=== PATIENT | female | born 1990 | race Caucasian/White ===

== ENCOUNTER 2020-04-11 10:44 | Outpatient (CLI) | payer BC, SELFPAY ==
--- NOTE | 2020-04-11 11:40 | US_ITS ---
WS: [id number] ULTRASOUND EARLY TECHNIQUE: Transabdominal sonography of the pelvis was performed. Followed by transvaginal sonography to better evaluate the uterus and ovaries. CLINICAL INFORMATION: SUPERVISION NORMAL , MULTIPAROUS LMP: 01/23/2020 Beta hCG: Unknown. COMPARISON: None. FINDINGS: Cervix measures 3.9 cm UTERUS AND GESTATIONAL SAC Intrauterine gestations: Estimated gestational age: 12w0d. Estimated delivery October 24, 2020 Yolk sac: cm. [place] rump length (CRL): 5.4 cm. heart motion: 171 BPM. Subchorionic hemorrhage: None. OVARIES Right ovary: Normal. Left ovary: Simple left ovarian cyst measuring 1.9 x 1.6 x 1.5 cm FREE FLUID None. US/US OB <= 14 weeks fetus [id number] IMPRESSION: 1. Single live intrauterine with cardiac activity. 2. Estimated gestational age; 12w0d. Estimated delivery October 24, 2020 3. Incidental small simple left ovarian cyst. 4. Normal cervix.
== END 2020-04-11 10:45 | disposition home or self-care (01) ==
LOC: RAD 10:51
PROVIDERS: Family Provider Family Medicine; Visit Provider Family Medicine
DX: Z34.81 Encounter for supervision of other normal pregnancy, first trimester; Z3A.12 12 weeks gestation of pregnancy
CPT/HCPCS: 76801

== ENCOUNTER 2020-06-09 07:02 | Outpatient (CLI) | payer SELFPAY ==
--- NOTE | 2020-06-09 07:09 | US_ITS ---
WS: [id number] OBSTETRICAL ULTRASOUND COMPLETE HISTORY: SUPERVISION NORMAL COMPARISON: None available. Single intrauterine gestation in variable presentation. Cervix is Closed and normal length. Cervical length is 5.3 cm. Normal amount of amniotic fluid surrounds the fetus. Placenta: Anterior, no previa or abruption. Placenta grade 1 Heart: 144 BPM. Four chambers are identified. Outflow tracts are not visualized. Anatomy: Intracranial structures and spine are normal. kidneys, stomach and urinary bladd er are unremarkable. Abdominal wall, three-vessel cord and cord insertion site are normal. 4 extremities are present. profile: Not visualized. Gender: Male. measurements: BPD = 4.6 cm = 19w6d HC = 17.1 cm = 19w5d AC = 14.6 cm = 19w6d FL = 3.1 cm = 19w5d EFW: 315 g. Biometry is internally concordant. AGA by ultrasound: 19w6d MICHEAL by ultrasound: 10/28/2020 US/US OB >= 14 weeks fetus [id number] IMPRESSION: 1. Single intrauterine gestation of 19w6d with an MICHEAL of 10/28/2020. 2. profile and cardiac outflow tracts are not visualized. Otherwise kristine ariana is negative.
== END 2020-06-09 07:03 | disposition home or self-care (01) ==
LOC: RAD 07:03
PROVIDERS: PCP Family Medicine; Visit Provider Family Medicine
DX: Z34.92 Encounter for supervision of normal pregnancy, unspecified, second trimester; Z3A.19 19 weeks gestation of pregnancy
CPT/HCPCS: 76805

== ENCOUNTER 2020-08-01 11:42 | Outpatient (CLI) | payer OTHER, SELFPAY ==
--- NOTE | 2020-08-01 12:03 | US_ITS ---
WS: [id number] ULTRASOUND OB LIMITED TECHNIQUE: Limited ultrasound examination of the fetus. CLINICAL INFORMATION: FOLLOW UP ON CARDIAC OUTFLOW TRACTS PROFILE COMPARISON: June 09, 2020 FINDINGS: Cervix measures 4.2 cm Single interuterine gestation. presentation is vertex Placental location is posterior. Placenta grade: 0. heart rate 147 BPM. Anatomy: Normal profile and four-chamber heart view seen today. Normal right and left ventricul ar outflow tracts[place] [id number] IMPRESSION: Normal profile and four-chamber heart view seen today. Normal right and l eft ventricular outflow tracts.
== END 2020-08-01 11:43 | disposition home or self-care (01) ==
LOC: RAD 11:52
PROVIDERS: PCP Family Medicine; Visit Provider Family Medicine
DX: Z34.80 Encounter for supervision of other normal pregnancy, unspecified trimester (principal)
CPT/HCPCS: 76816

== ENCOUNTER 2020-09-23 11:27 | Outpatient (CLI) | payer OTHER, SELFPAY ==
[2020-09-23] VITALS (7 sets, daily range): BP systolic 108–116; BP diastolic 60–72; PULSE 69–93; RESP 17; TEMP 36.7; BMI 36.2
--- NOTE | 2020-09-23 11:59 | US_ITS ---
WS: [id number] BIOPHYSICAL PROFILE AND LIMITED OB. UMBILICAL ARTERY DOPPLER EVALUATION. HISTORY: HTN. BPP with NOMAN, EFW, and umbilical artery studies please COMPARISON: 08/01/2020, 06/09/2020, 04/11/2020 Presentation: Cephalic. Cervix: Closed and normal length. Placenta: Fundal, no previa or abruption. Grade: 1 HEART: FHR of 144BPM. measurements: BPD = 8.8 cm = 35w5d HC = 31.6 cm = 35w3d AC = 31.6 cm = 35w4d FL = 6.9 cm = 35w2d NOMAN: 16.6 cm EFW: 2687g; 73 %. AGA by ultrasound: 35w4d MICHEAL by ultrasound: 10/24/2020 Measurements are internally concordant. Appropriate growth since the first trimester ultrasound. No g rowth asymmetry. UMBILICAL ARTERY DOPPLER Waveform analysis: Normal systolic and diastolic velocities. Diastolic velocity remains above the bas saul. Normal upstroke of waveform. SD ratios: SD ratios range from 1.8 - 2.5 Resistivity indices: Normal near 0.6 Biophysical profile: Parameters are as follows: Breathin Movement: 2 Tone: 2 Fluid volume: 2 Largest vertical pocket 4.2 cm. US/US OB lm w fetalBPP woNST &umb IMPRESSION: 1. Biophysical profile score: 8/8. 2. Single intrauterine gestation of 35w4d and 10/24/2020. Appropriate gr owth since the first trimester ultrasound. No growth asymmetry. 3. Estimated weight 2687 grams at the 73rd percentile. 4. Normal amniotic fluid index. 5. Normal umbilical artery Doppler evaluation. Normal waveforms.
[2020-09-23 12:22] LABS: Basophils % 0.3 %; Eosinophils # 0.1 10^3/uL (0.0-0.8); Eosinophils % 1.4 %; Hematocrit 33.5 % (37.0-47.0); Hemoglobin 10.5 g/dL (11.5-15.3); Lymphocytes # 1.4 10^3/uL (0.8-4.8); Lymphocytes % 18.5 %; Mean Corpuscular HGB Conc 31.3 g/dL (30.0-36.0); Mean Corpuscular Hemoglobin 26.2 pg (28.0-34.0); Mean Corpuscular Volume 83.5 fL (81-99); Mean Platelet Volume 12.2 fL (7.4-10.4); Monocytes # 0.6 10^3/uL (0.2-0.9); Monocytes % 8.4 %; Neutrophils % 70.9 %; Nucleated Red Blood Cells % 0 %; Platelet Count 277 10^3/cmm (130-400); Red Blood Count 4.01 10^6/uL (4.1-5.3); Red Cell Distribution Width 13.2 % (12.1-15.1); White Blood Count 7.3 10^3/uL (4.0-10.0)
[2020-09-23 13:04] LABS: Alanine Aminotransferase 11 U/L (0-33); Albumin Level 3.3 g/dL (3.5-5.2); Alkaline Phosphatase 241 IU/L (35-105); Aspartate Amino Transferase 14 U/L (0-32); Blood Urea Nitrogen 4 mg/dL (6-20); Calcium 8.3 mg/dL (8.5-10.5); Carbon Dioxide 22 mmol/L (22-29); Chloride 102 mmol/L (98-107); Globulin 3.6 g/dL (1.3-4.6); Glomerular Filtration Rate 190.1 mL/min (90-130); Glucose 116 mg/dL (65-115); Osmolality Calculated 282 mOsm/kg (285-295); Sodium 137 mmol/L (136-145); Total Bilirubin 0.3 mg/dL (0.15-1.2); Total Protein 6.9 g/dL (6.6-8.7)
== END 2020-09-23 13:30 | disposition home or self-care (01) ==
LOC: OPOB 11:33 → OBGYN 11:34
PROVIDERS: PCP Family Medicine; Visit Provider Family Medicine
DX: O16.3 Unspecified maternal hypertension, third trimester (principal); Z3A.35 35 weeks gestation of pregnancy
CPT/HCPCS: 36415; 59025; 76815; 76819; 76820; 80053; 84550; 85025; 99211

== ENCOUNTER 2020-09-26 09:57 | Outpatient (CLI) | payer OTHER, SELFPAY ==
[2020-09-26 10:03] VITALS: BMI 36.3
[2020-09-26 10:06] VITALS: BP 133/71; PULSE 103
[2020-09-26 10:07] VITALS: TEMP 36.3
[2020-09-26 10:18] VITALS: BP 115/69; PULSE 97
[2020-09-26 10:27] VITALS: BP 105/59; PULSE 96
[2020-09-26 10:37] VITALS: BP 113/78; PULSE 98
[2020-09-26 10:47] VITALS: BP 115/78; PULSE 102
== END 2020-09-26 10:52 | disposition home or self-care (01) ==
LOC: OPOB 09:59 → OBGYN 10:00
PROVIDERS: PCP Family Medicine; Visit Provider Family Medicine
DX: O16.9 Unspecified maternal hypertension, unspecified trimester (principal); Z3A.00 Weeks of gestation of pregnancy not specified
CPT/HCPCS: 59025

== ENCOUNTER 2020-09-29 16:31 | Outpatient (CLI) | payer OTHER, SELFPAY ==
[2020-09-29 16:50] VITALS: BP 123/71; PULSE 86
[2020-09-29 16:53] VITALS: RESP 16
--- NOTE | 2020-09-29 17:01 | USR_ITS ---
PROCEDURE INFORMATION: Exam: US Biophysical Profile Without Non-Stress Test Exam date and time: 09/29/2020 5:01 PM Age: 30 years old Clinical indication: Condition or disease; Other: HTN; ; Additional info: Hypertension, please get jordan and efw TECHNIQUE: Imaging protocol: US biophysical profile without non-stress testing. COMPARISON: US OB >= 14 weeks fetus [id number] 06/09/2020 7:19 AM FINDINGS: BIOPHYSICAL PROFILE: Breathin/2 Gross body movements: 2/2 tone: 2/2 Qualitative amniotic fluid: 2/2 Biophysical Profile Score: 8/8 US/US OB lm w fetalBPP woNST &umb IMPRESSION: Biophysical profile score equals 8/8.
[2020-09-29 17:05] VITALS: BP 110/76; PULSE 101
[2020-09-29 17:07] VITALS: BMI 36.6
[2020-09-29 17:20] VITALS: BP 113/80; PULSE 88
[2020-09-29 17:35] VITALS: BP 113/82; PULSE 89
[2020-09-29 17:50] VITALS: BP 120/73; PULSE 90
== END 2020-09-29 18:02 | disposition home or self-care (01) ==
LOC: OPOB 16:38 → OBGYN 16:39
PROVIDERS: PCP Family Medicine; Visit Provider Family Medicine
DX: O16.9 Unspecified maternal hypertension, unspecified trimester (principal); Z3A.00 Weeks of gestation of pregnancy not specified
CPT/HCPCS: 59025; 76815; 76819; 76820

== ENCOUNTER 2020-10-03 10:35 | Outpatient (CLI) | payer OTHER, SELFPAY ==
[2020-10-03 10:42] VITALS: BP 130/81; PULSE 93
[2020-10-03 10:44] VITALS: BMI 36.8
== END 2020-10-03 11:10 | disposition home or self-care (01) ==
LOC: OPOB 10:36 → OBGYN 10:38
PROVIDERS: PCP Family Medicine; Visit Provider Family Medicine
DX: O24.419 Gestational diabetes mellitus in pregnancy, unspecified control (principal); Z3A.00 Weeks of gestation of pregnancy not specified
CPT/HCPCS: 59025

== ENCOUNTER 2020-10-06 16:25 | Outpatient (CLI) | payer OTHER, SELFPAY ==
[2020-10-06 16:25] VITALS: BMI 37.0
--- NOTE | 2020-10-06 16:34 | USR_ITS ---
PROCEDURE INFORMATION: Exam: US , Limited Exam date and time: 10/06/2020 4:34 PM Age: 30 years old Clinical indication: Lmp or gestational age (in weeks): 36 w 5 day; Antepartum complications; Other: Pre eclamp; ; Additional info: Mild pre eclampsia, jordan, efw, umbilical artery studies TECHNIQUE: Imaging protocol: Real-time ultrasound of the maternal uterus with image documentation. Exam focused on the clinical indication. COMPARISON: US OB lm w fetalBPP woNST umb 09/29/2020 5:25 PM FINDINGS: Gestation: Single intrauterine gestation. presentation: Cephalic presentation. heart rate: 153 bpm. Placenta: Posterior grade 2 placenta. Amniotic fluid index: 13.4 cm. Umbilical cord: SD ratios 2.4 proximal, 1.7 mid, and 1.9 distal portions. Weight percentile 67% BIOMETRY: Gestational age (AUA): 36 weeks 5 days Estimated due date (AUA): 10/29/2020. Estimated weight: 3000 g, 6 lb 10 oz Biparietal diameter: 9.05 cm, 36 weeks 5 days Head circumference: 32.53 cm, 36 weeks 6 days Abdominal circumference: 32.69 cm, 36 weeks 4 days Femur length: 7.17 cm, 36 weeks 5 days MATERNAL: Cervix: Not well visualized. Estimated at 4.3 cm in length. US/US OB BPP NST [id number] IMPRESSION: 1. Single living intrauterine gestation estimated at 36 weeks 5 days.
[2020-10-06 16:39] VITALS: BP 119/76; PULSE 90; TEMP 36.8
[2020-10-06 16:59] VITALS: BP 119/74; PULSE 82
[2020-10-06 17:25] VITALS: BP 127/79; PULSE 82
[2020-10-06 17:40] VITALS: BP 120/74; PULSE 76
== END 2020-10-06 18:10 | disposition home or self-care (01) ==
LOC: OPOB 16:31 → OBGYN 16:33
PROVIDERS: PCP Family Medicine; Visit Provider Family Medicine
DX: O14.03 Mild to moderate pre-eclampsia, third trimester (principal); Z3A.36 36 weeks gestation of pregnancy
CPT/HCPCS: 59025; 76819; 99211

== ENCOUNTER 2020-10-10 14:26 | Inpatient (IN) | payer OTHER, SELFPAY ==
[2020-10-10] VITALS (9 sets, daily range): BP systolic 114–130; BP diastolic 57–79; PULSE 73–96; RESP 16; TEMP 36.6; BMI 37.4
[2020-10-10 15:16] LABS: Basophils % 0.4 %; Eosinophils # 0.1 10^3/uL (0.0-0.8); Eosinophils % 1.1 %; Hematocrit 35.9 % (37.0-47.0); Hemoglobin 11.4 g/dL (11.5-15.3); Lymphocytes # 1.6 10^3/uL (0.8-4.8); Lymphocytes % 19.6 %; Mean Corpuscular HGB Conc 31.8 g/dL (30.0-36.0); Mean Corpuscular Volume 85.1 fL (81-99); Mean Platelet Volume 12.4 fL (7.4-10.4); Monocytes # 0.5 10^3/uL (0.2-0.9); Monocytes % 5.8 %; Neutrophils # 5.88 10^3/uL (1.8-7.7); Neutrophils % 72.7 %; Nucleated Red Blood Cells % 0 %; Platelet Count 250 10^3/cmm (130-400); Red Blood Count 4.22 10^6/uL (4.1-5.3); Red Cell Distribution Width 16.1 % (12.1-15.1); White Blood Count 8.1 10^3/uL (4.0-10.0)
[2020-10-10 15:28] LABS: Bilirubin Urine Neg (Negative); Blood Urine 2+ (Negative); Glucose Urine UA Norm (Normal); Ketones Urine Negative (Negative); Leukocyte Esterase Urine Negative (Negative); Nitrate Urine Negative (Negative); Protein Urine Neg (Negative); RBC Urine 0-4 /hpf (0-2); Specific Gravity, Urine 1.005 (1.005-1.030); Urine Appearance Clear (CLEAR); Urine Color Colorless (Yellow); Urobilinogen Urine Norm (Negative); pH Urine 5 (5-7)
[2020-10-10 15:29] LABS: Add Urine Culture? No; Bacteria Urine 1+ /hpf; Squamous Epithelial Cell Urine 0-4 /hpf (0-5)
[2020-10-10 15:31] LABS: Alanine Aminotransferase 6 U/L (0-33); Albumin Level 3.4 g/dL (3.5-5.2); Alkaline Phosphatase 245 IU/L (35-105); Aspartate Amino Transferase 12 U/L (0-32); Blood Urea Nitrogen 5 mg/dL (6-20); Calcium 8.5 mg/dL (8.5-10.5); Carbon Dioxide 21 mmol/L (22-29); Chloride 103 mmol/L (98-107); Globulin 3.6 g/dL (1.3-4.6); Glomerular Filtration Rate 190.1 mL/min (90-130); Glucose 114 mg/dL (65-115); Osmolality Calculated 282 mOsm/kg (285-295); Sodium 137 mmol/L (136-145); Total Bilirubin 0.2 mg/dL (0.15-1.2); Uric Acid 3.6 mg/dL (2.4-5.7)
[2020-10-10 15:34] LABS: Urine Creatinine 18 mg/dL (28-217); Urine Protein Random 4 mg/dL
[2020-10-10 15:39] LABS: UPRO/UCREAT Ratio 0.22 mg/mg CR
--- NOTE | 2020-10-10 19:12 | P.HP_ITS ---
Providers/Chief Complaint Admitting Physician: Baljinder Lopez MD Primary Care Provider: Baljinder Lopez MD Chief Complaint: Abdominal pain History of Present Illness Daniella Lopez is a 30 year old G3, P2 at 37.2 weeks gestation by LMP consistent with 12-week ultrasound. Her is complicated by 2 children with PTEN hamartoma syndrome with autism, elevated 1 hour glucose tolerance test with normal 3-hour glucose tolerance test, GBS positive, preeclampsia now with s evere features. The patient presented to my office with concerns for worsening symptoms. She has been having increased dizziness and lightheadedness especially related to exertion. She denies any nausea. She has had some headaches. They are mild and nature. The patient has been feeling nauseous and Tums helps some. Patient denies any flashing lights. The patient denies any leakage of fluid, vaginal bleeding, contractions, chest pains, shortness of breath, dysuria, fevers. Medications/Allergies Home Medications Medication Instructions Recorded Confirmed Last Taken Type ferrous sulfate 325 mg PO BID 09/26/20 10/03/20 10/06/20 12:30 History Allergies Allergy/AdvReac Type Severity Reaction Status Date / Time No Known Allergies Allergy Verified 10/03/20 10:47 PFSH Acute PFSH: Social History (Updated 10/10/20 @ 19:19 by Baljinder Lopez MD) Smoking and tobacco status: never smoked Alcohol intake: never Substance/Drug Use: never Female Reproductive History: : 3 Vitals/I&O/Wt Last Vital Signs Pulse 73 10/10/20 16:41 Resp 16 10/10/20 14:54 BP 122/57 10/10/20 16:41 Weight last 48 hrs Weight 218 lb Physical Exam Narrative: EXAM NARRATIVE: General: Alert and oriented x3 Eyes: Pupils equal round and reactive to light and accommodation Mouth: Mucous membranes moist, pharynx non-erythematous Cardiac: Regular rate and rhythm without murmurs Lungs: Clear to auscultation bilaterally without wheezes, crackles or rhonchi Abdomen: Soft, non-tender, fundus consistent with gestational age Extremities: +1 pitting edema in the bilateral lower extremities Neuro: Brisk deep tendon reflexes bilaterally Data : 10/10/20 14:45 10/10/20 14:45 A&P Additional A&P Information The patient is showing signs of preeclampsia with severe features. Her blood pressures are stable at this point. We will continue to watch them closely. The patient will be started for induction this evening. I discussed the possible risks of delivery at 37 weeks gestation in terms of prematurity for the infant versus the possible risks of preeclampsia and continuing with . The patient and her are in agreement with proceeding with induction of labor. The patient is GBS positive and we will start prophylaxis once we start labor induction. All questions were answered. The patient and her are in agreement with the current plan of care. Attestations Medical Necessity Statement*: The patient will be here for greater than 2 midnights due to routine intrapartum and management of with complications of preeclampsia. Coding Level of Care Code Acute Bankruptcy Judge for Benito Esparza
[2020-10-11] VITALS (352 sets, daily range): BP systolic 87–137; BP diastolic 48–84; PULSE 17–110; RESP 14–17; TEMP 35.2–36.7; O2SAT 92–100
[2020-10-11] MEDS: ampicillin 2,000 MG in sodium chloride 0.9% (plus) 50 ML 100 MG IV (01:13)
[2020-10-11] MEDS: oxytocin 30 UNIT/500 ML BAG IV (01:13)
[2020-10-11] MEDS: dextrose 5%-lactated ringers 1,000 ML 125 ML IV (01:14)
[2020-10-11] MEDS: lactated ringers 1,000 ML 999 ML IV (02:49)
--- NOTE | 2020-10-11 04:15 | ANES.PREANE2 ---
Pre-Anesthetic Assessment Pre-Anesthetic Assessment: Height/Weight: Height 1.63 m Weight 98.883 kg Temp Pulse Resp BP Pulse Ox 97.9 F 82 16 118/61 98 10/10/20 23:56 10/11/20 04:10 10/10/20 14:54 10/11/20 04:10 10/11/20 04:10 Preop Diagnosis: Active Labor Proposed Procedure: Labor Epidural Was Beta Monica taken within 24 hours: N/A Was Clonidine taken within 24 hours: N/A Last intake: 10/10/20 1400 Social: Social History: No alcohol and No tobacco Exam: Pre-Anes Outpt Exam: alert, oriented x 3 and clear to auscultation bilaterally Airway: Submandibular: WNL Cervical ROM: WNL MP: 2 Dentition: Full History/ROS: No significant history except as noted Pulmonary: Pulmonary: None reported CV/HEM: CV/HEM: None reported Comments: severe preeclampsia noted on chart, labs and BP WNL at this time. : : None reported Hepatic: Hepatic: None reported GI: GI: None reported Metabolic: Metabolic: None reported Musc/skel: Musc/skel: None reported Neuropsych: Neuropsych: None reported Anesthetic Plan: ASA status: 2 Anesthesia: Regional (specify below) Other: epidural Risk of > 500 ml blood loss (7ml/kg in children): No Meds/Allergies Current Medications: Current Medications Generic Name Dose Route Start Last Admin Trade Name Freq PRN Reason Stop Dose Admin Dextrose/Lactated Ringer's 1,000 mls @ 125 m ls/hr 10/11/20 00:28 10/11/20 02:50 Dextrose 5%-Lact ated Ringers IV 0 mls/hr .Q8H PRN Infusion Labor Induction Lactated Ringer's 1,000 mls @ 999 m ls/hr 10/11/20 00:28 10/11/20 02:49 Lactated Ringers IV 999 mls/hr .Q1H1M PRN Administration See label comment s Oxytocin 30 unit in 500 ml s @ 2 mls/hr 10/11/20 00:28 10/11/20 03:21 Pitocin IV 10 milliunit/min .Q24H PRN 10 mls/hr Labor Induction Titration Protocol 2 MILLIUNIT/MIN PFSH Anesthesia PFSH: Social History (Updated 10/10/20 @ 19:19 by Baljinder Lopez MD) Smoking and tobacco status: never smoked Alcohol intake: never Substance/Drug Use: never Female Reproductive History: : 3 Data Anesthesia CBC & Chem 7: 10/10/20 14:45 10/10/20 14:45 Other Labs: Laboratory Results - last 48 hr 10/10/20 10/10/20 10/10/20 14:30 14:30 14:45 WBC 8.1 RBC 4.22 Hgb 11.4 L Hct 35.9 L MCV 85.1 MCH 27.0 L MCHC 31.8 RDW 16.1 H Plt Count 250 MPV 12.4 H Neut % (Auto) 72.7 Lymph % (Auto) 19.6 [place] % (Auto) 5.8 Eos % (Auto) 1.1 Baso % (Auto) 0.4 Neut # (Auto) 5.88 Lymph # (Auto) 1.6 [place] # (Auto) 0.5 Eos # (Auto) 0.1 Baso # (Auto) 0.0 Nucleated RBC % (auto) 0 Nucleated RBCs # 0.0 Sodium Potassium Chloride Carbon Dioxide Anion Gap BUN Creatinine GFR Calculation Glucose Calculated Osmolality Uric Acid Calcium Total Bilirubin AST ALT Alkaline Phosphatase Total Protein Albumin Globulin Urine Color Colorless Urine Appearance Clear Urine pH 5 Ur Specific [place] 1.005 Urine Protein Neg Urine Glucose (UA) Norm Urine Ketones Negative Urine Blood 2+ H Urine Nitrate Negative Urine Bilirubin Neg Urine Urobilinogen Norm Ur Leukocyte Esterase Negative Urine RBC 0-4 H Urine WBC 5-10 H Ur Squamous Epith Cells 0-4 H Amorphous Sediment Not Reportable Urine Bacteria 1+ H U Random Total Protein 4 Urine Creatinine 18 L Protein/Creatinin Ratio 0.22 10/10/20 14:45 WBC RBC Hgb Hct MCV MCH MCHC RDW Plt Count MPV Neut % (Auto) Lymph % (Auto) [place] % (Auto) Eos % (Auto) Baso % (Auto) Neut # (Auto) Lymph # (Auto) [place] # (Auto) Eos # (Auto) Baso # (Auto) Nucleated RBC % (auto) Nucleated RBCs # Sodium 137 Potassium 4.0 Chloride 103 Carbon Dioxide 21 L Anion Gap 17.0 BUN 5 L Creatinine 0.4 L GFR Calculation 190.1 H Glucose 114 Calculated Osmolality 282 L Uric Acid 3.6 Calcium 8.5 Total Bilirubin 0.2 AST 12 ALT 6 Alkaline Phosphatase 245 H Total Protein 7.0 Albumin 3.4 L Globulin 3.6 Urine Color Urine Appearance Urine pH Ur Specific [place] Urine Protein Urine Glucose (UA) Urine Ketones Urine Blood Urine Nitrate Urine Bilirubin Urine Urobilinogen Ur Leukocyte Esterase Urine RBC Urine WBC Ur Squamous Epith Cells Amorphous Sediment Urine Bacteria U Random Total Protein Urine Creatinine Protein/Creatinin Ratio Cardiac Studies: No Data to Display
--- NOTE | 2020-10-11 04:18 | ANES.PROC ---
Anesthesia Procedures Procedure/Date: 10/11/20 Epidural: Time Out Performed: Yes Consents Signed: Procedure Consent Consent: from patient Lumbar Level: L3-L4 Epidural position: sitting Epidural procedure: 1% lidocaine to numb the area, negative for paresthesia passed, test dose given, 1.5% xylocaine 1:200k epi, placed PCEA, no systemic response, L.U.D. no apparent complications and 0.2% Ropiavacaine @ mls/hr (13) Additional Comments: ALLYSSA at 7.5 cm catheter threaded to 14 cm
[2020-10-11] MEDS: magnesium sulfate premix 4 GM/100 ML PREMIX IV (04:22)
[2020-10-11] MEDS: ampicillin 1,000 MG in sodium chloride 0.9% (plus) 50 ML 100 MG IV ×3 (04:43→13:53)
[2020-10-11] MEDS: magnesium sulfate premix 20 GM/500 ML BAG IV ×2 (04:44→14:22)
[2020-10-11 10:04] LABS: Magnesium Level (OB Only) 4.5 mg/dL (5.0-7.5)
--- NOTE | 2020-10-11 12:02 | P.PN_ITS ---
Subjective Subjective: Interval history: The patient is feeling well today. The patient was noted to be 3 cm at approximately midnight and was started on IV Pitocin. Her Pitocin is now at 20 units. The patient was having increased pain with her contractions, so she received a laboring epidural. The patient is on IV magnesium. She is on GBS prophylaxis treatment. The patient continues to feel some lightheadedness. Otherwise she feels well. Vitals/I&O/Wt Last Vital Signs Temp 96.6 F L 10/11/20 10:27 Pulse 81 10/11/20 11:58 Resp 14 10/11/20 06:20 BP 120/68 10/11/20 11:58 Pulse Ox 98 10/11/20 11:55 10/10/20 10/11/20 10/11/20 22:59 06:59 14:59 Intake Total 1625.634 / 1625.634 54.45 / 54.45 Output Total 205 / 205 531 / 531 Balance 1420.634 / 1420.634 -476.55 / -476.55 Weight last 48 hrs Weight 218 lb Physical Exam Narrative: EXAM NARRATIVE: General: Alert and oriented x3 Cardiac: Regular rate and rhythm without murmurs Lungs: Clear to auscultation bilaterally without wheezes, crackles or rhonchi Abdomen: Soft, non-tender, fundus consistent with gestational age Extremities: +1 pitting edema in the bilateral lower extremities Neuro: Brisk deep tendon reflexes bilaterally Urinary Catheter Management^: Real: Cath Placed During This Visit: yes Reason for Continuing Indwelling Catheter: Accurate Measurement of Urinary Output in Critically Ill Patients Urinary Catheter Date of Insertion: 10/11/20 Urinary Catheter Time of Insertion: 05:36 Data : 10/10/20 14:45 10/10/20 14:45 A&P Additional A&P Information The patient's blood pressure is stable at this time. Her urine output had decreased to 30 mL/h at one point, however has recovered. The patient is 4.5 cm dilated. The head was well applied, so AROM was performed at approximately 11 AM. Clear fluid was noted. All questions were answered. We will continue with induction of labor secondary to preeclampsia with severe features. Attestations Medical Necessity Statement*: The patient will be here for greater than 2 midnights due to treatment of intrapartum and management of labor and delivery with preeclampsia. Coding Level of Care Code Acute Newspaper Copy Editor for Benito Esparza
--- NOTE | 2020-10-11 14:03 | PM.MISC ---
Miscellaneous Note Purpose of Documentation: Epidural Bolus; 100mcg fent, 5mls 0.25% bup.
[2020-10-11] MEDS: oxytocin 30 UNIT/500 ML BAG 600 UNIT IV (15:49)
--- NOTE | 2020-10-11 15:52 | PM.DELIVERY ---
Delivery Note: Date of delivery: October 11, 2020 Pre-delivery diagnoses: 1. Intrauterine at 37.3 weeks gestation 2. 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 Elevated 1 hour GTT with normal 3-hour GTT 4. GBS positive 5. Preeclampsia with severe features Post-delivery diagnoses: 1. Intrauterine status post spontaneous vaginal delivery at 37.3 weeks gestation 2. 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 Elevated 1 hour GTT with normal 3-hour GTT 4. GBS positive 5. Preeclampsia with severe features 6. Delivery of healthy infant male weighing 7 pounds 1 ounce with Apgars of 7 and 9. Procedure: Spontaneous vaginal delivery Op report anesthesia: Epidural Findings: Intact placenta Nuchal cord x1 Delivery of healthy infant male weighing 7 pounds 1 ounce with Apgars of 7 and 9 Pre-Delivery Course: The patient for induction of labor secondary to preeclampsia with severe features. The patient was started on IV Pitocin at approximately midnight on the morning of 10/11/2020. The patient was 3 cm dilated. The patient made good change and by 11:18 AM she was 4.5 cm dilated with a well applied head to the cervix. For this reason AROM was performed at 11:18 AM to augment labor. Clear fluid was noted. The patient continued to make change and was complete at 1457 on 10/11/2020. Delivery: Patient began pushing at on 10/11/2020. The patient pushed well and with 2 contractions, the was delivered. The delivered in the OA position. There was 1 nuchal cord that was reduced prior to delivery of the 's body. The right shoulder was the anterior shoulder and it delivered with ease. The rest of the delivered without complication. The infant's mouth and nose were suctioned by myself and the infant was crying shortly after delivery. The infant was placed on the mother's chest where the nurses were waiting to care for him. The cord was clamped by myself after approximately 1 minute and cut by the infant's father. Cord blood was obtained. The cord was then drained of blood and uterine massage was carried out. Traction was placed on the umbilical cord and the placenta delivered without complication at 1517 on 10/11/2020. The placenta was noted to be intact with a central umbilical cord insertion site. A false knot was noted. There was no true knot. The cervix was inspected and no lacerations were appreciated. The vaginal wall was inspected and a first-degree laceration in the midline perineal region was noted. This was bleeding, so it was repaired using 3-0 Vicryl in a running fashion. Another small laceration was noted in the periurethral region. This was not bleeding and no repair was needed. The patient's bleeding was initially moderately heavy, however has slowed down well. EBL was 200 mL. The did need blow-by oxygen for approximately 30 seconds. There is some mild grunting otherwise the infant is doing well. Currently the mother is doing well. Coding Level of Care Code Acute Container Washer for Benito Esparza
[2020-10-11 17:45] LABS: Magnesium Level (OB Only) 5.3 mg/dL (5.0-7.5)
[2020-10-11] MEDS: ondansetron 2 mg/ML SDV 2 mL 4 MG IVP (18:54)
[2020-10-11] MEDS: dextrose 5%-lactated ringers 1,000 ML 57 ML IV (19:30)
[2020-10-11] MEDS: ibuprofen 800 mg tablet PO (21:08)
--- NOTE | 2020-10-11 21:30 | ANE.PACU2 ---
Inpatient post-anesthesia follow up: Airway intact: Yes Vital signs: Temperature 98.1 F Pulse Rate 86 Respiratory Rate 16 Blood Pressure 126/73 Pulse Oximetry 97 Oxygen Delivery Me thod Room Air Oxygen Flow Rate Fraction of Inspir ed Oxygen Hydration adequate: Yes Nausea and vomiting: No Pain level: 1 Mental status: Baseline
[2020-10-12] VITALS (211 sets, daily range): BP systolic 99–161; BP diastolic 56–80; PULSE 62–95; RESP 16; TEMP 35.3–36.5; O2SAT 91–100
[2020-10-12] MEDS: magnesium sulfate premix 20 GM/500 ML BAG IV ×2 (00:42→11:19)
[2020-10-12 06:33] LABS: Magnesium Level (OB Only) 6.4 mg/dL (5.0-7.5)
[2020-10-12 08:04] LABS: Hematocrit 32.6 % (37.0-47.0); Hemoglobin 10.1 g/dL (11.5-15.3); Mean Corpuscular Hemoglobin 26.8 pg (28.0-34.0); Mean Corpuscular Volume 86.5 fL (81-99); Mean Platelet Volume 11.9 fL (7.4-10.4); Platelet Count 252 10^3/cmm (130-400); Red Blood Count 3.77 10^6/uL (4.1-5.3); Red Cell Distribution Width 16.3 % (12.1-15.1); White Blood Count 8.1 10^3/uL (4.0-10.0)
[2020-10-12] MEDS: dextrose 5%-lactated ringers 1,000 ML 75 ML IV (08:58)
[2020-10-12] MEDS: ferrous sulfate EC 325 mg Tablet PO (08:59)
[2020-10-12] MEDS: benzocaine-menthol 78 gm Canister 1 SPRAY TOPICAL (08:59)
[2020-10-12] MEDS: prenatal vitamin Capsule 1 CAP PO (08:59)
[2020-10-12] MEDS: lanolin oint 7 gm 1 APPLIC TOPICAL (08:59)
[2020-10-12] MEDS: docusate sodium 100 mg Capsule PO ×2 (08:59→17:25)
[2020-10-12] MEDS: ibuprofen 800 mg tablet PO ×3 (08:59→21:32)
[2020-10-12 12:21] LABS: Magnesium Level (OB Only) 6.2 mg/dL (5.0-7.5)
--- NOTE | 2020-10-12 14:52 | P.PN_ITS ---
Subjective Subjective: Interval history: The patient is showing signs of improvement after delivery. Her bleeding is decreasing well. Her urine output has been very good with amounts up to 900 mL/h. The patient has been having some vision blurriness and occasional double vision. This was going on prior to delivery for about a month the patient states. She thought it was due to fatigue. Is currently no better. Otherwise she is eating well. Vitals/I&O/Wt Last Vital Signs Temp 97.7 F 10/12/20 08:07 Pulse 75 10/12/20 13:59 Resp 16 10/12/20 07:30 BP 117/63 10/12/20 13:59 Pulse Ox 100 10/12/20 13:15 10/11/20 10/12/20 10/12/20 22:59 06:59 14:59 Intake Total 776.40 / 7765.875 1022 / 2482.517 2493.516 / 2493.516 Output Total 1602 / 2653 2200 / 4853 1625 / 1625 Balance -825.60 / -1190.483 -1180 / -2370.483 868.516 / 868.516 Physical Exam Narrative: EXAM NARRATIVE: General: Alert and oriented x3 Cardiac: Regular rate and rhythm without murmurs Lungs: Clear to auscultation bilaterally without wheezes, crackles or rhonchi Abdomen: Soft, mild tenderness. Uterus is firm and 2 cm below the umbilicus. Extremities: +1 pitting edema in the bilateral lower extremities Neuro: Pupils are reactive bilaterally and patient is able to track well. Extraocular muscles intact. Urinary Catheter Management^: Real: Cath Placed During This Visit: yes Reason for Continuing Indwelling Catheter: Accurate Measurement of Urinary Output in Critically Ill Patients Urinary Catheter Date of Insertion: 10/11/20 Urinary Catheter Time of Insertion: 05:36 Data : 10/12/20 07:56 10/10/20 14:45 A&P Additional A&P Information The patient is doing well her urine output has improved significantly. We will plan to discontinue the IV magnesium at 24 hours after delivery. The patient's vision issues are possibly related to her underlying preeclampsia and worsened by magnesium. We will wait to see how her vision is doing after discontinuing the magnesium. If it is persisting, I would recommend that she sees her eye doctor to have a retinal exam. If abnormalities are present, we could consider further testing. I suspect that this will improve the further we get from . The patient is doing well otherwise and we will plan for discharge home tomorrow if she continues to do well. All questions were answered. Attestations Medical Necessity Statement*: The patient will be here for greater than 2 midnights due to routine intrapartum and management of labor and delivery along with preeclampsia. Coding Level of Care Code Acute Diesel Powerplant Supervisor for Benito Esparza
[2020-10-13 04:02] VITALS: BP 113/68; PULSE 86
[2020-10-13 07:00] VITALS: RESP 16
--- NOTE | 2020-10-13 08:01 | PM.DCS ---
Discharge Providers Date of Admission: 10/11/20 00:31 Date of Discharge: October 13, 2020 Attending Provider at Admission: Baljidner Lopez MD Attending Provider at Discharge: Baljinder Lopez MD Primary Care Provider: Baljinder Lopez MD Diagnoses at Discharge Other Information Additional DC diagnoses/information: Post-delivery diagnoses: 1. Intrauterine status post spontaneous vaginal delivery at 37.3 weeks gestation 2. 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 Elevated 1 hour GTT with normal 3-hour GTT 4. GBS positive 5. Preeclampsia with severe features 6. Delivery of healthy infant male weighing 7 pounds 1 ounce with Apgars of 7 and 9. Procedure: Spontaneous vaginal delivery Op report anesthesia: Epidural Findings: Intact placenta Nuchal cord x1 Delivery of healthy infant male weighing 7 pounds 1 ounce with Apgars of 7 and 9 Reason for Visit Reason for Visit: Abdominal pain Hospital Course Hospital Course Pre-Delivery Course: The patient for induction of labor secondary to preeclampsia with severe features. The patient was started on IV Pitocin at approximately midnight on the morning of 10/11/2020. The patient was 3 cm dilated. The patient made good change and by 11:18 AM she was 4.5 cm dilated with a well applied head to the cervix. For this reason AROM was performed at 11:18 AM to augment labor. Clear fluid was noted. The patient continued to make change and was complete at 1457 on 10/11/2020. Delivery: Patient began pushing at on 10/11/2020. The patient pushed well and with 2 contractions, the was delivered. The delivered in the OA position. There was 1 nuchal cord that was reduced prior to delivery of the infant's body. The right shoulder was the anterior shoulder and it delivered with ease. The rest of the delivered without complication. The infant's mouth and nose were suctioned by myself and the was crying shortly after delivery. The infant was placed on the mother's chest where the nurses were waiting to care for him. The cord was clamped by myself after approximately 1 minute and cut by the 's father. Cord blood was obtained. The cord was then drained of blood and uterine massage was carried out. Traction was placed on the umbilical cord and the placenta delivered without complication at 1517 on 10/11/2020. The placenta was noted to be intact with a central umbilical cord insertion site. A false knot was noted. There was no true knot. The cervix was inspected and no lacerations were appreciated. The vaginal wall was inspected and a first-degree laceration in the midline perineal region was noted. This was bleeding, so it was repaired using 3-0 Vicryl in a running fashion. Another small laceration was noted in the periurethral region. This was not bleeding and no repair was needed. The patient's bleeding was initially moderately heavy, however has slowed down well. EBL was 200 mL. The did need blow-by oxygen for approximately 30 seconds. course: The patient was continued on IV magnesium for 24 hours after delivery. The patient did well with this and had no concerning blood pressure readings. The patient was monitored for another 24 hours after delivery and continued to do well. Her bleeding was decreasing well. She is ambulating, voiding, passing gas and tolerating food by mouth. Her pain is under good control. Routine discharge instructions were discussed including those for monitoring her blood pressure at home. All questions were answered. The patient and her are in agreement with the current plan of care. Physical Exam Narrative: EXAM NARRATIVE: General: Alert and oriented x3 Cardiac: Regular rate and rhythm without murmurs Lungs: Clear to auscultation bilaterally without wheezes, crackles or rhonchi Abdomen: Soft, mild tenderness. Uterus is firm and 2 cm below the umbilicus. Extremities: +1 pitting edema in the bilateral lower extremities Urinary Catheter Management^: Real: Cath Placed During This Visit: yes, but has since been removed by the nurse Reason for Continuing Indwelling Catheter: Decision to DC Catheter Urinary Catheter Date of Insertion: 10/11/20 Urinary Catheter Time of Insertion: 05:36 Date Urinary Catheter Removed: 10/12/20 Time Urinary Catheter Discontinued: 15:17 Discharge Data Data Completed and Pending: Labs from last 24 hours 10/12/20 10/12/20 11:36 07:56 WBC 8.1 RBC 3.77 L Hgb 10.1 L Hct 32.6 L MCV 86.5 MCH 26.8 L MCHC 31.0 RDW 16.3 H Plt Count 252 MPV 11.9 H Magnesium 6.2 Vitals: Last Vital Signs Temp 97.7 F 10/12/20 08:07 Pulse 86 10/13/20 04:02 Resp 16 07/28/21 07:30 BP 113/68 10/13/20 04:02 Pulse Ox 100 10/12/20 13:15 Discharge Plan Discharge Patient Disposition: Home Condition: Good Prescriptions: New ibuprofen 800 mg Tablet 800 mg PO TID Qty: 60 RF: 0 -U 106.5-1 mg Capsule 1 cap PO DAILY Qty: 30 RF: 0 Continued ferrous sulfate 325 mg (65 mg iron) Tablet 325 mg PO BID RF: 0 Discharge Orders: Discharge Order (Routine); Ordered 10/13/20 Ordered By: Baljinder Lopez Referrals: Baljinder Lopez MD [Primary Care Provider] - 10/17/20 2:10 pm (Also 6 weeks is 11.22.2020 at 1130.) Discharge Diet: Advance as tolerated Discharge Activity: Limit activity as instructed Patient Instructions: Perineal Care (DC), Your Baby (GEN), How to Hold and Breastfeed Your Baby (GEN), and Nipple Soreness (GEN), Breast Fullness Versus Breast Engorgement (GEN), How to Increase Your Milk Supply (GEN), Breast Care for the Breast Feeding Mother (GEN), Vaginal Delivery (DC), Pre-eclampsia and Eclampsia (DC), Bleeding (DC), OB Discharge Report, OB Food/Drug Interaction Guide, Opioid Safety, OB Your Care - [facility], OB Proud Parent Packet, OB Vaginal Deliveries, Abnormal Bleeding, Depression Activity Restrictions/Additional Instructions: Please keep your activity levels low and check your blood pressure twice a day. Let me know if you are having any problems. Nothing per vagina for 6 weeks. Discharge Attestations Time Spent in Discharge Care*: greater than 30 min Quality Metrics Clinical Quality Measures During this hospital stay, did patient experience: None Coding Level of Care Code Acute Chg FW DC note
[2020-10-13] MEDS: ferrous sulfate EC 325 mg Tablet PO (09:11)
[2020-10-13] MEDS: prenatal vitamin Capsule 1 CAP PO (09:11)
[2020-10-13] MEDS: ibuprofen 800 mg tablet PO (09:11)
[2020-10-13 09:18] VITALS: BP 141/72; PULSE 96; TEMP 37.1
[2020-10-13 09:30] VITALS: RESP 18
[2020-10-13 10:07] VITALS: RESP 18
== END 2020-10-13 09:35 | disposition home or self-care (01) | DRG 807 ==
PROVIDERS: Admitting Provider Family Medicine; PCP Family Medicine; Visit Provider Family Medicine
DX: O14.14 Severe pre-eclampsia complicating childbirth (principal); Z37.0 Single live birth; Z3A.37 37 weeks gestation of pregnancy; O99.824 Streptococcus B carrier state complicating childbirth; O69.2XX0 Labor and delivery complicated by other cord entanglement, with compression, not applicable or unspecified; O70.0 First degree perineal laceration during delivery
CPT/HCPCS: 36415; 51702; 59409; 80053; 81001; 82570; 83735; 84156; 84550; 85025; 85027; 96374; 96375; 98960; G0378; G0379; J0290; J2405; J2795; J3010; J3475; J3490

== ENCOUNTER → 2021-10-23 10:09 | Outpatient (BNVA) | payer OTHER, SELFPAY | PROVIDERS: PCP Family Medicine; Visit Provider Family Medicine | DX: Z34.90 Encounter for supervision of normal pregnancy, unspecified, unspecified trimester (principal); N92.6 Irregular menstruation, unspecified; O14.10 Severe pre-eclampsia, unspecified trimester; Z34.80 Encounter for supervision of other normal pregnancy, unspecified trimester; Z87.59 Personal history of other complications of pregnancy, childbirth and the puerperium; B95.1 Streptococcus, group B, as the cause of diseases classified elsewhere | CPT/HCPCS: 80307; 80503; 81000; 81025; 84144; 84443; 84702; 85027; 86592; 86762; 86850; 86870; 86900; 86902; 87086; 87340; 87491; 87591; 87806; 88175 ==

== ENCOUNTER → 2021-10-24 15:28 | Outpatient (BNVA) | payer OTHER, SELFPAY | PROVIDERS: PCP Family Medicine; Visit Provider Family Medicine | DX: Z34.80 Encounter for supervision of other normal pregnancy, unspecified trimester | CPT/HCPCS: 84156 ==

== ENCOUNTER → 2021-11-13 15:03 | Outpatient (BNVA) | payer OTHER, SELFPAY | PROVIDERS: PCP Family Medicine; Visit Provider Family Medicine | DX: O36.0990 Maternal care for other rhesus isoimmunization, unspecified trimester, not applicable or unspecified (principal); Z3A.00 Weeks of gestation of pregnancy not specified | CPT/HCPCS: 86886 ==

== ENCOUNTER 2021-11-22 06:12 | Outpatient (CLI) | payer OTHER, SELFPAY ==
--- NOTE | 2021-11-22 06:15 | US_ITS ---
WS: [id number] LIMITED OBSTETRICAL ULTRASOUND HISTORY: Dates. COMPARISON: None available. Presentation: Breech. Cervix: Closed, 4.0 cm in length. Placenta: Anterior, no previa. Grade: 0 HEART: FHR of 144 BPM. measurements: BPD = 2.8 cm = 15w0d HC = 11.4 cm = 15w4d AC = 8.7 cm = 15w0d FL = 1.7 cm = 15w0d AGA by ultrasound: 15w1d MICHEAL by ultrasound: 05/15/2022 US/US OB <= 14 weeks fetus [id number] IMPRESSION: 1. Single intrauterine gestation of 15 weeks 1 day with an EDC of 05/15/2022. 2. Normal cardiac activity.
== END 2021-11-22 06:13 | disposition home or self-care (01) ==
LOC: RAD 06:13
PROVIDERS: PCP Family Medicine; Visit Provider Family Medicine
DX: Z34.80 Encounter for supervision of other normal pregnancy, unspecified trimester (principal); Z3A.15 15 weeks gestation of pregnancy
CPT/HCPCS: 76801

== ENCOUNTER → 2021-12-11 09:45 | Outpatient (BNVA) | payer OTHER, SELFPAY | PROVIDERS: PCP Family Medicine; Visit Provider Family Medicine | DX: O36.0990 Maternal care for other rhesus isoimmunization, unspecified trimester, not applicable or unspecified (principal); Z3A.00 Weeks of gestation of pregnancy not specified | CPT/HCPCS: 86886 ==

== ENCOUNTER → 2022-01-15 09:03 | Outpatient (BNVA) | payer OTHER, SELFPAY | PROVIDERS: PCP Family Medicine; Visit Provider Family Medicine | DX: O36.0990 Maternal care for other rhesus isoimmunization, unspecified trimester, not applicable or unspecified (principal); Z3A.00 Weeks of gestation of pregnancy not specified | CPT/HCPCS: 86886 ==

== ENCOUNTER → 2022-01-16 13:42 | Outpatient (BNVA) | payer OTHER, SELFPAY | PROVIDERS: PCP Family Medicine; Visit Provider Family Medicine | DX: Z36.87 Encounter for antenatal screening for uncertain dates (principal) | CPT/HCPCS: 76805 ==

== ENCOUNTER → 2022-02-05 11:54 | Outpatient (BNVA) | payer OTHER, SELFPAY | PROVIDERS: PCP Family Medicine; Visit Provider Family Medicine | DX: O36.0990 Maternal care for other rhesus isoimmunization, unspecified trimester, not applicable or unspecified (principal); Z3A.00 Weeks of gestation of pregnancy not specified | CPT/HCPCS: 82950; 86850; 86870; 86886 ==

== ENCOUNTER → 2022-02-12 08:24 | Outpatient (BNVA) | payer OTHER, SELFPAY | PROVIDERS: PCP Family Medicine; Visit Provider Family Medicine | DX: O99.810 Abnormal glucose complicating pregnancy (principal); O36.0990 Maternal care for other rhesus isoimmunization, unspecified trimester, not applicable or unspecified; Z34.80 Encounter for supervision of other normal pregnancy, unspecified trimester; B95.1 Streptococcus, group B, as the cause of diseases classified elsewhere; Z3A.00 Weeks of gestation of pregnancy not specified | CPT/HCPCS: 82951; 82952 ==

== ENCOUNTER → 2022-03-05 11:24 | Outpatient (BNVA) | payer OTHER, SELFPAY | PROVIDERS: PCP Family Medicine; Visit Provider Family Medicine | DX: Z34.80 Encounter for supervision of other normal pregnancy, unspecified trimester (principal) | CPT/HCPCS: 86850; 86870; 86886 ==

== ENCOUNTER → 2022-04-02 14:59 | Outpatient (BNVA) | payer OTHER, SELFPAY | PROVIDERS: PCP Family Medicine; Visit Provider Family Medicine | DX: O36.0990 Maternal care for other rhesus isoimmunization, unspecified trimester, not applicable or unspecified (principal); O09.93 Supervision of high risk pregnancy, unspecified, third trimester; Z51.81 Encounter for therapeutic drug level monitoring | CPT/HCPCS: 85025; 86850; 86870; 86886; 86900 ==

== ENCOUNTER → 2022-04-23 16:17 | Outpatient (BNVA) | payer OTHER, SELFPAY | PROVIDERS: PCP Family Medicine; Visit Provider Family Medicine | DX: O09.93 Supervision of high risk pregnancy, unspecified, third trimester (principal); R51.9 Headache, unspecified; Z3A.23 23 weeks gestation of pregnancy | CPT/HCPCS: 87081 ==

== ENCOUNTER 2022-04-25 16:49 | Outpatient (CLI) | payer OTHER, SELFPAY ==
[2022-04-25 18:19] LABS: Total Volume, Urine 1600 mL
== END 2022-04-25 16:50 | disposition home or self-care (01) ==
LOC: LAB 16:50
PROVIDERS: PCP Family Medicine; Visit Provider Family Medicine
DX: O09.93 Supervision of high risk pregnancy, unspecified, third trimester (principal); R51.9 Headache, unspecified
CPT/HCPCS: 84156

== ENCOUNTER 2022-08-27 05:52 | Emergency (ER) | payer BC, SELFPAY ==
[2022-08-27 05:56] VITALS: BP 133/76; PULSE 60; RESP 18; TEMP 36.6; O2SAT 98
--- NOTE | 2022-08-27 05:57 | ED_ITS ---
HPI - Abdominal Pain General: Chief Complaint: Abdominal Pain Stated Complaint: abd pain Time Seen by Provider: 08/27/22 05:56 Source: patient Mode of arrival: ambulatory History of Present Illness: 32-year-old female presents emergency room complaining of abdominal pain. States she began to have abdominal pain around [birth year]29 this morning and persisted through the night she vomited once or twice no hematochezia no melena no dysuria urgency or frequency she localizes the pain to the epigastric area. No previous abdominal surgeries no hematochezia denies potential for being at this time. She did try some Tums with no relief of her symptoms. Noticed significant worsening when she tried to hold her 3-month-old child. MD elicited complaint: abdominal pain Onset (ago): hour(s) Pain Consistency: intermittent Location: Epigastric Severity: mild Quality: cramping Relieving factors: nothing Associated Symptoms: Denies anorexia, belching, bloating, change in bowel habits, change in stool character, chills, coffee ground emesis, constipation, GI cramping, diarrhea, dyspepsia, dysuria, excessive flatus, fever(s), heartburn, hematochezia, hematuria, hematemesis, fecal incontinence, loose stools, melena, nausea, poor appetite, syncope and vomiting Review of Systems Const: Denies: fever(s), chills, fatigue or malaise ENMT: Denies: throat pain, ear or mastoid pain, nasal discharge or nasal congestion Card: Denies: chest pain, palpitations or syncope Resp: Denies: dyspnea, productive cough or non-productive cough GI: Reports: abdominal pain; Denies: nausea, vomiting, hematemesis, coffee ground emesis, heartburn, diarrhea, constipation, bloating, GI cramping, belching, excessive flatus, fecal incontinence, change in bowel habits, change in stool character, hematochezia or melena : Denies: flank pain, dysuria, urinary frequency, urinary urgency or hem aturia Musc: Denies: neck pain or back pain Skin/Breast: Denies: rash or pruritus PFS ED PFSH: Medical History History of pre-eclampsia Preeclampsia, severe Surgical History No history of previous surgery Family History Son Autism Daughter Autism Father Diabetes CAD (coronary artery disease) [place] Hypertension Social History Smoking and tobacco status: never smoked Alcohol intake: never Substance/Drug Use: never Physical Exam Const: GENERAL APPEARANCE: cooperative and comfortable ORIENTATION/C ONSCIOUSNESS: Yes awake, Yes oriented to person, Yes oriented to place and Yes oriented to time HENMT: COMMON NORMALS: normocephalic, atraumatic and hearing grossly normal bilaterally HEAD & SCALP: normocephalic and atraumatic Resp: COMMON NORMALS: normal respiratory effort, No retractions, No use of accessory muscles and clear to auscultation bilaterally AUSCULTATION: clear to auscultation bilaterally Cardio: COMMON NORMALS: regular rate, regular rhythm and No murmurs present (Cardio) RATE: regular rate RHYTHM: regular rhythm GI: COMMON NORMALS: Soft to palpation and No hepatosplenomegaly present AUSCULTATION: Yes normoactive bowel sounds PALPATION: Yes Soft to palpation, No Tenderness to palpation present (GI), No Guarding due to palpation present (GI) and Yes No hepatosplenomegaly present Extremity: COMMON NORMALS: normal to inspection, capillary refill normal, no clubbing, cyanosis or edema, no calf tenderness and no pedal edema Neuro: SENSORIUM/ORIENTATION: Yes oriented to person, Yes oriented to place and Yes oriented to time Skin: COMMON NORMALS: no rashes or lesions noted GENERAL SKIN EXAM: no ra shes or lesions noted Course Vital Signs: Vital signs: Vital Signs Temperature 97.9 F 08/27/22 05:56 Pulse Rate 85 08/27/22 08:46 Respiratory Rate 18 08/27/22 08:46 Blood Pressure 132/71 08/27/22 08:46 Pulse Oximetry 98 08/27/22 08:46 Oxygen Delivery Me thod Room Air 08/27/22 06:30 MDM - Abdominal Pain Medical Decision Making Biliary colic with cholelithiasis reviewed labs and imaging with the patient. His elevation of transaminases but no elevation of T. bili. No radiographic findings of acute cholecystitis symptoms have resolved at this time. We will discharge patient home discussed dietary modifications that can relieve symptoms we will refer her to general surgery for definitive care as an outpatient Medical Records I reviewed the patient's medical records. Lab Data I reviewed the patient's lab results. 08/27/22 06:15 08/27/22 06:15 Labs/Radiology: Radiology Impressions Gallbladder Ultrasound 08/27/22 07:05 IMPRESSION: 1. Cholelithiasis. There are a few small stones in the gallbladder. No evidence for acute cholecystitis. 2. No bile duct dilatation. Laboratory Results WBC 8.8 10^3/uL (4.0-10.0) 08/27/22 06:15 RBC 4.84 10^6/uL (4.1-5.3) 08/27/22 06:15 Hgb 12.2 g/dL (11.5-15.3) 08/27/22 06:15 Hct 39.8 % (37.0-47.0) 08/27/22 06:15 MCV 82.2 fl (81-99) 08/27/22 06:15 MCH 25.2 pg (28.0-34.0) L 08/27/22 06:15 MCHC 30.7 g/dL (30.0-36.0) 08/27/22 06:15 RDW 14.2 % (12.1-15.1) 08/27/22 06:15 Plt Count 280 10^3/cmm (130-400) 08/27/22 06:15 MPV 11.0 fL (7.4-10.4) H 08/27/22 06:15 Neut % (Auto) 75.9 % 08/27/22 06:15 Lymph % (Auto) 16.1 % 08/27/22 06:15 [place] % (Auto) 5.8 % 08/27/22 06:15 Eos % (Auto) 1.4 % 08/27/22 06:15 Baso % (Auto) 0.5 % 08/27/22 06:15 Neut # (Auto) 6.66 10^3/uL (1.8-7.7) 08/27/22 06:15 Lymph # (Auto) 1.4 10^3/uL (0.8-4.8) 08/27/22 06:15 [place] # (Auto) 0.5 10^3/uL (0.2-0.9) 08/27/22 06:15 Eos # (Auto) 0.1 10^3/uL (0.0-0.8) 08/27/22 06:15 Baso # (Auto) 0.0 10^3/uL (0.0-0.1) 08/27/22 06:15 Nucleated RBC % (auto) 0 % 08/27/22 06:15 Nucleated RBCs # 0.0 /100WBC 08/27/22 06:15 Sodium 138 mmol/L (136-145) 08/27/22 06:15 Potassium 3.4 mmol/L (3.5-5.1) L 08/27/22 06:15 Chloride 102 mmol/L (98-107) 08/27/22 06:15 Carbon Dioxide 25 mmol/L (22-29) 08/27/22 06:15 Anion Gap 14.4 (5-19) 08/27/22 06:15 BUN 15 mg/dL (6-20) 08/27/22 06:15 Creatinine 0.6 mg/dL (0.5-0.9) 08/27/22 06:15 GFR Calculation 117.4 mL/min (90-130) 08/27/22 06:15 Glucose 136 mg/dL (65-115) H 08/27/22 06:15 Calculated Osmolality 289 mOsm/kg (285-295) 08/27/22 06:15 Calcium 9.3 mg/dL (8.5-10.5) 08/27/22 06:15 Total Bilirubin 0.5 mg/dL (0.15-1.2) 08/27/22 06:15 AST 151 U/L (0-32) H 08/27/22 06:15 ALT 84 U/L (0-33) H 08/27/22 06:15 Alkaline Phosphatase 153 U/L (35-105) H 08/27/22 06:15 Total Protein 7.9 g/dL (6.6-8.7) 08/27/22 06:15 Albumin 4.3 g/dL (3.5-5.2) 08/27/22 06:15 Globulin 3.6 g/dL (1.3-4.6) 08/27/22 06:15 Lipase 27 U/L (13-60) 08/27/22 06:15 HCG, Qual Negative (Negative) 08/27/22 06:15 Urine Color Yellow (Yellow) 08/27/22 06:29 Urine Appearance Sl hazy (CLEAR) A 08/27/22 06:29 Urine pH 6.5 (5-7) 08/27/22 06:29 Ur Specific [place] 1.015 (1.005-1.030) 08/27/22 06:29 Urine Protein Neg (Negative) 08/27/22 06:29 Urine Glucose (UA) Norm (Normal) 08/27/22 06:29 Urine Ketones 1+ (Negative) H 08/27/22 06:29 Urine Blood Trace (Negative) H 08/27/22 06:29 Urine Nitrate Negative (Negative) 08/27/22 06:29 Urine Bilirubin 1+ (Negative) H 08/27/22 06:29 Urine Urobilinogen 1 mg/dL (Negative) H 08/27/22 06:29 Ur Leukocyte Esterase Negative (Negative) 08/27/22 06:29 Urine RBC 0-4 /hpf (0-2) H 08/27/22 06:29 Urine WBC 0-4 /hpf (0-5) H 08/27/22 06:29 Ur Squamous Epith Cells 0-4 /hpf (0-5) H 08/27/22 06:29 Amorphous Sediment Not Reportable 08/27/22 06:29 Urine Bacteria Trace /hpf (NONE) 08/27/22 06:29 Urine Mucus 3+ /hpf 08/27/22 06:29 Discharge Plan Discharge Patient Disposition: Home Clinical Impression: Cholelithiasis Condition: Stable Prescriptions: New ondansetron HCl 4 mg tablet 4 mg PO Q6H PRN (Reason: nausea and vomiting) Qty: 10 0RF Discharge Orders: Discharge ED (Routine); Ordered 08/27/22 Ordered By: Joey Arellano Referrals: Baljinder Lopez MD [Primary Care Provider] - Discharge Diet: As Directed Discharge Activity: Resume usual activity Patient Instructions: Biliary Colic (ED), Gallstones (ED), Opioid Safety, Pain Management Activity Restrictions/Additional Instructions: You are seen today for abdominal pain examination and labs do not show acute cholecystitis but you do have gallstones. Recommend that you follow-up with general surgery for consideration of cholecystectomy. Case management make arrangements for an appointment with a general surgeon. Avoid fatty foods red meats fried foods citrus fruits and tomato based foods. Coding Level of Care Code ED [employer] Supervisor for Benito Esparza
[2022-08-27 06:01] VITALS: BP 118/65; PULSE 60; O2SAT 97
[2022-08-27] MEDS: sodium chloride 0.9% 1,000 ML 999 ML IV (06:23)
[2022-08-27 06:30] VITALS: BP 114/78; PULSE 59; O2SAT 99
[2022-08-27 06:30] LABS: Basophils % 0.5 %; Eosinophils # 0.1 10^3/uL (0.0-0.8); Eosinophils % 1.4 %; Hematocrit 39.8 % (37.0-47.0); Hemoglobin 12.2 g/dL (11.5-15.3); Lymphocytes # 1.4 10^3/uL (0.8-4.8); Lymphocytes % 16.1 %; Mean Corpuscular HGB Conc 30.7 g/dL (30.0-36.0); Mean Corpuscular Hemoglobin 25.2 pg (28.0-34.0); Mean Corpuscular Volume 82.2 fl (81-99); Monocytes # 0.5 10^3/uL (0.2-0.9); Monocytes % 5.8 %; Neutrophils # 6.66 10^3/uL (1.8-7.7); Neutrophils % 75.9 %; Nucleated Red Blood Cells % 0 %; Platelet Count 280 10^3/cmm (130-400); Red Blood Count 4.84 10^6/uL (4.1-5.3); Red Cell Distribution Width 14.2 % (12.1-15.1); White Blood Count 8.8 10^3/uL (4.0-10.0)
[2022-08-27 06:48] LABS: Blood Urine Trace (Negative); Glucose Urine UA Norm (Normal); Ketones Urine 1+ (Negative); Nitrate Urine Negative (Negative); Protein Urine Neg (Negative); Specific Gravity, Urine 1.015 (1.005-1.030); Urine Appearance SL Hazy (CLEAR); Urine Color Yellow (Yellow); pH Urine 6.5 (5-7)
[2022-08-27 06:49] LABS: Add Urine Microscopic? YES; Bacteria Urine TRACE /hpf; Bilirubin Urine 1+ (Negative); Leukocyte Esterase Urine Negative (Negative); RBC Urine 0-4 /hpf (0-2); Squamous Epithelial Cell Urine 0-4 /hpf (0-5); Urobilinogen Urine 1 mg/dL (Negative); WBC Urine 0-4 /hpf (0-5)
[2022-08-27 06:50] LABS: HCG, Serum Qual Negative (Negative)
[2022-08-27 06:50] LABS: Add Urine Culture? No; Mucus Urine 3+ /hpf
[2022-08-27 06:53] LABS: Alanine Aminotransferase 84 U/L (0-33); Albumin Level 4.3 g/dL (3.5-5.2); Alkaline Phosphatase 153 U/L (35-105); Anion Gap 14.4 (5-19); Aspartate Amino Transferase 151 U/L (0-32); Blood Urea Nitrogen 15 mg/dL (6-20); Calcium 9.3 mg/dL (8.5-10.5); Carbon Dioxide 25 mmol/L (22-29); Chloride 102 mmol/L (98-107); Globulin 3.6 g/dL (1.3-4.6); Glomerular Filtration Rate 117.4 mL/min (90-130); Glucose 136 mg/dL (65-115); Lipase 27 U/L (13-60); Osmolality Calculated 289 mOsm/kg (285-295); Potassium 3.4 mmol/L (3.5-5.1); Sodium 138 mmol/L (136-145); Total Bilirubin 0.5 mg/dL (0.15-1.2); Total Protein 7.9 g/dL (6.6-8.7)
--- NOTE | 2022-08-27 07:05 | US_ITS ---
WS: [id number] RIGHT UPPER QUADRANT ULTRASOUND HISTORY: abd pain COMPARISON: None available. Liver: 16.1 cm in length. Normal size liver and echogenicity. No bile duct dilatation or mass. Portal Vein: Normal hepatopetal flow with monophasic waveform. Gallbladder: Cholelithiasis without acute cholecystitis. No wall thickening or bile duct dilatation. CBD: 0.4 cm Pancreas: Normal size and echogenicity. Right kidney: 11.0 cm in length. Normal size and echogenicity. No hydronephrosis or mass. Aorta and IVC: Unremarkable abdominal aorta and IVC. No ascites. US/US gall bladder [id number] IMPRESSION: 1. Cholelithiasis. There are a few small stones in the gallbladder. No evidenc e for acute cholecystitis. 2. No bile duct dilatation.
[2022-08-27 08:46] VITALS: BP 132/71; PULSE 85; RESP 18; O2SAT 98
--- NOTE | 2022-08-28 08:24 | DCPLANNER ---
Addendum entered by Keyana Rao 10/11/22 07:30: Patient had a follow up appointment scheduled with general surgery - patient did attend appointment Addendum entered by Keyana Rao 10/03/22 13:22: Patient has a follow up appointment scheduled for Sunday, October 09, 2022 at 2:[address] Maldonado at general surgery. Original Note: manager customer service had message to schedule a follow up appointment for patient with general surgery. manager customer service sent patients information to the front office staff at general surgery. Patients information will be printed and reviewed. Clinic will call patient with appointment information.
== END 2022-08-27 08:47 | disposition home or self-care (01) ==
PROVIDERS: Emergency Provider Family Medicine; PCP Family Medicine
DX: K80.20 Calculus of gallbladder without cholecystitis without obstruction (principal)
CPT/HCPCS: 76705; 80053; 81001; 83690; 84703; 85025; 96360; 99284; J7030

== ENCOUNTER 2022-11-29 12:16 | Day surgery (SDC) | payer BC, SELFPAY ==
[2022-11-28 16:22] VITALS: BMI 27.9
[2022-11-29] VITALS (9 sets, daily range): BP systolic 106–139; BP diastolic 58–91; PULSE 68–93; RESP 13–18; TEMP 36.1–36.4; O2SAT 93–100
--- NOTE | 2022-11-29 12:43 | PM.HP ---
Providers/Chief Complaint Primary Care Provider: Baljinder Lopez MD Chief Complaint: K80.20 History of Present Illness Daniella Lopez is a 32 year old female Review of Systems General: Reports: 10 or more systems reviewed and unremarkable except in HPI and below Medications/Allergies Home Medications Medication Instructions Recorded Confirmed Last Taken Type No Known Home Medications 11/28/22 11/28/22 Unknown History Allergies Allergy/AdvReac Type Severity Reaction Status Date / Time No Known Allergies Allergy Verified 11/28/22 16:21 PFSH Acute PFSH: Medical History History of pre-eclampsia Preeclampsia, severe Surgical History No history of previous surgery Family History Son Autism Daughter Autism Father Diabetes CAD (coronary artery disease) [place] Hypertension Social History Smoking and tobacco status: never smoked Alcohol intake: never Substance/Drug Use: never Female Reproductive History: Date of last menstrual period: 11/15/22 Vitals/I&O/Wt Weight last 48 hrs Weight 163 lb Weight 163 lb A&P Assessment and plan (1) Symptomatic cholelithiasis: Plan Laparoscopic cholecystectomy Attestations Medical Necessity Statement*: Home Coding Level of Care Code Acute Code for Chg Fwd Diagnoses Symptomatic cholelithiasis K80.20
[2022-11-29 12:55] LABS: OR HCG Qualitative Urine Negative (Negative)
[2022-11-29] MEDS: sodium chloride 0.9% 1,000 ML 30 ML IV (13:15)
[2022-11-29] MEDS: ceFAZolin 2,000 MG in sodium chloride 0.9% (plus) 50 ML 100 MG IV (13:21)
[2022-11-29] MEDS: lidocaine-epi 2% 20 mL INJ INJECTION (13:44)
--- NOTE | 2022-11-29 13:51 | PM.OP ---
Operative Report Date of procedure: November 29, 2022 Pre-op diagnosis: Symptomatic cholelithiasis Post-op diagnosis: same Procedure done: Laparoscopic cholecystectomy Implants: None Specimens removed/disposition: Gallbladder Surgeon: Wilson Maldonado DO Anesthesia: General Estimated blood loss (mL): 5 Complications: None apparent Brief History: This is a very pleasant 32-year-old female who was diagnosed with symptomatic cholelithiasis. Laparoscopic cholecystectomy is indicated. The risk and benefits were explained and documented. Procedure: Patient was wheeled into the operative room and placed on the OR table in a supine position. Abdomen was inspected prepped and draped in usual sterile fashion. Time-out was performed and all present were in agreement. A 15 blade scalp was used to make a stab incision in the left upper quadrant and intra-abdominal insufflation was achieved using a Veress needle. After localizing the tissue incisions were made and a 5 millimeter trocar was placed into the umbilicus as well as 2 in the right upper quadrant. A 12 millimeter trocar was placed in the epigastrium. Gallbladder was grasped and elevated. The triangle of [place]ot was carefully dissected using blunt dissection and electrocautery until the triangle of [place] clearly identified. The cystic duct was clipped proximally and double clipped distally. The duct was then ligated proximally. The cystic artery was doubly clipped and ligated. The gallbladder was then removed from the liver bed using electrocautery. The gallbladder was removed from the abdomen using an Endo-Catch bag through the epigastric incision. The liver bed was inspected and no bleeding was seen. The abdomen was irrigated and suctioned. All ports removed. Skin was washed and dried. Incisions were closed with 4-0 Monocryl in a subcuticular interrupted fashion. Skin glue was applied. Patient tolerated the procedure well.
[2022-11-29] MEDS: ondansetron 2 mg/ML SDV 2 mL 4 MG IVP ×2 (14:25→15:30)
[2022-11-29] MEDS: scopolamine 1.5 Patch 1 PATCH TRANSDERMA (15:00)
[2022-11-29] MEDS: HYDROcodone-acetaminophen 10-325 mg Tablet 1 TAB PO (15:24)
--- NOTE | 2022-11-29 15:24 | ANE.PACU2 ---
Inpatient post-anesthesia follow up: Airway intact: Yes Vital signs: Temperature 97.6 F Pulse Rate 68 Respiratory Rate 14 Blood Pressure 127/83 Pulse Oximetry 100 Oxygen Delivery Me thod Room Air Oxygen Flow Rate Fraction of Inspir ed Oxygen Hydration adequate: Yes Nausea and vomiting: Yes Pain level: 2 Mental status: Baseline
--- NOTE | 2022-11-29 15:34 | SUR.PHASEII ---
15:30 MEDICATED FOR PAIN AND NAUSEA. INCISION SITES DRY AND INTACT.
== END 2022-11-29 16:00 | disposition home or self-care (01) ==
PROVIDERS: Anesthesiology; PCP Family Medicine; Visit Provider Surgery
PROC: 0FT44ZZ Resection of Gallbladder, Percutaneous Endoscopic Approach (ICD-10-PCS; CPT 47562; principal; 2022-11-29 13:45)
DX: K80.10 Calculus of gallbladder with chronic cholecystitis without obstruction (principal)
CPT/HCPCS: 47562; 81025; 84703; 88304; J0690; J1100; J1200; J2250; J2405; J2704; J2710; J3010; J3490; J7030